=== PATIENT | male | born 2005 | race Caucasian/White ===

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

== ENCOUNTER 2023-01-28 15:57 | Outpatient (REF) | payer OTHER, SELFPAY ==
[2023-02-01 07:52] LABS: IgA 135 mg/dL (85-499); Interpretation (See Note); Tissue Transglutaminase IgA <1.2 U/mL (<4.0)
== END 2023-01-28 15:58 | disposition home or self-care (01) ==
LOC: NCHCN 15:57
PROVIDERS: Visit Provider Family Medicine
DX: R11.2 Nausea with vomiting, unspecified (principal)
CPT/HCPCS: 82784; 83516

== ENCOUNTER 2023-07-22 12:50 | Emergency (ER) | payer OTHER, SELFPAY ==
[2023-07-22 12:53] VITALS: BP 151/87; PULSE 75; RESP 14; TEMP 36.3; O2SAT 98
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
== END 2023-07-22 13:27 | disposition home or self-care (01) ==
LOC: ER 13:30
PROVIDERS: Emergency Provider Physician Assistant
DX: S61.215A Laceration without foreign body of left ring finger without damage to nail, initial encounter (principal); W31.2XXA Contact with powered woodworking and forming machines, initial encounter
CPT/HCPCS: 99283

== ENCOUNTER 2023-10-18 22:19 | Emergency (ER) | payer OTHER, SELFPAY ==
[2023-10-18] VITALS (7 sets, daily range): BP systolic 111–124; BP diastolic 63–75; PULSE 51–84; RESP 20; TEMP 36.2; O2SAT 95–100
--- NOTE | 2023-10-18 22:45 | DI.RAD_ITS ---
Exam(s) XR ABDOMEN FLAT UPRIGHT EXAM: 2D digital imaging was performed. CLINICAL HISTORY: vomiting, r/o obstruction. COMPARISON: No exams were available for comparison TECHNIQUE: Supine and upright views of the abdomen was performed. Four images were obtained. FINDINGS: LUNG BASES: Clear. BOWEL GAS PATTERN: Nondistended. FREE AIR: None. CALCIFICATIONS: No radiopaque calcifications. OSSEOUS STRUCTURES: Normal for age. OTHER FINDINGS: None. IMPRESSION: No evidence of an acute abdomen. DATA REPOSITORY: RADIATION DOSE DELIVERED:
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
[2023-10-18] MEDS: Lactated Ringers 1,000 ML 1000 ML IV (22:59)
[2023-10-18] MEDS: Droperidol 5 MG/2 ML VIAL 1.25 MG IVP (22:59)
[2023-10-18] MEDS: Ondansetron 4 MG/2 ML VIAL IVP (22:59)
[2023-10-18 23:01] LABS: Absolute Basophil Count 0.03 10^3/uL (0.0-0.2); Absolute Monocyte Count 0.72 10^3/uL (0.1-0.8); Basophils % 0.2 %; HCT 43.3 % (40.0-50.0); HGB 14.9 g/dL (13.5-17.5); Immature Grans % 0.6 %; Lymphocytes % 4.6 %; MCH 30.2 pg (27.0-33.0); MCHC 34.4 % (32.0-36.0); MCV 88 fL (80-95); MPV 10.4 fL (8.0-11.0); Monocytes % 4.2 %; Neutrophils % 90.4 %; Platelet Count 228 10^3/uL (130-400); RBC 4.94 10^6/uL (4.36-5.78); RDW 12.8 % (11.8-14.1); RDW-SD 41.2 fL; WBC 17.07 10^3/uL (4.4-10.8)
[2023-10-18 23:07] LABS: Absolute Lymphocyte Count 0.79 10^3/uL (1.2-3.4); Absolute Neutrophil Count 15.43 10^3/uL (1.2-6.7)
[2023-10-18 23:23] LABS: ALT 22 U/L (16-63); AST 21 U/L (15-37); Alkaline Phosphatase 62 U/L (46-116); Anion Gap 13.7 mmol/L (3-11); BUN 11 mg/dL (7-18); Bilirubin, Total 1.19 mg/dL (0.2-1.0); CO2 24.3 mmol/L (21.0-32.0); CREATININE 0.9 mg/dL (0.70-1.30); Chloride 102 mmol/L (98-107); Estimated GFR 125.39 (mL/min/1.73m2); Glucose 104 mg/dL (74-106); Lipase 16 U/L (16-77); Sodium 140 mmol/L (136-145); Total Protein 8.1 g/dL (6.4-8.2)
[2023-10-18 23:41] LABS: Calcium 9.6 mg/dL (8.5-10.1)
[2023-10-19 00:18] VITALS: BP 112/50; PULSE 65; RESP 18; TEMP 36.8; O2SAT 100
[2023-10-19] MEDS: Ondansetron O.D.T. 4 MG TABEF, 3 TABS/BTL PO (00:18)
[2023-10-19 00:22] VITALS: BP 112/50; PULSE 65; RESP 18; TEMP 36.8; O2SAT 100
--- NOTE | 2023-10-19 00:46 | DI.VRAD_ITS ---
PROCEDURE INFORMATION: Exam: XR Abdomen Exam date and time: 10/18/2023 23:09 Age: 18 years old Clinical indication: Vomiting; Additional info: Vomiting, R/O obstruction TECHNIQUE: Imaging protocol: Radiologic exam of the abdomen. Views: 2 Views. Upright and supine views. COMPARISON: CT CHEST/ABD/PEL W 11/20/2020 21:22 FINDINGS: Gastrointestinal tract: Nobstructive bowel gas pattern. No pathologic dilation of small bowel. General paucity of small bowel gas. Intraperitoneal space: No free air. Bones/joints: Unremarkable for age. IMPRESSION: Nobstructive bowel gas pattern. Dictated and Authenticated by: Shima Aceves MD. Ordering:ROLANDO Broussard MD
== END 2023-10-19 00:22 | disposition home or self-care (01) ==
PROVIDERS: Emergency Provider Student in an Organized Health Care Education/Training Program
DX: R10.32 Left lower quadrant pain (principal); R11.2 Nausea with vomiting, unspecified
CPT/HCPCS: 36415; 80053; 83690; 96361; 96374; 96375; 99284; 74019; 85025; 99283; J1790; J2405

== ENCOUNTER 2023-10-20 17:44 | Emergency (ER) | payer OTHER, SELFPAY ==
[2023-10-20 17:48] VITALS: BP 122/65; PULSE 87; RESP 15; TEMP 36.7; O2SAT 99
[2023-10-20 17:51] VITALS: BP 122/65; PULSE 87; RESP 15; TEMP 36.7; O2SAT 99
== END 2023-10-20 18:10 | disposition left against medical advice (07) ==
LOC: ER 18:02
DX: Z53.21 Procedure and treatment not carried out due to patient leaving prior to being seen by health care provider (principal)

== ENCOUNTER 2023-10-20 20:21 | Inpatient (IN) | payer OTHER, SELFPAY ==
[2023-10-20] VITALS (9 sets, daily range): BP systolic 102–146; BP diastolic 42–69; PULSE 60–92; RESP 14–15; TEMP 37; O2SAT 92–99; BMI 19.5
--- NOTE | 2023-10-20 20:45 | DI.CT_ITS ---
Exam(s) CT ABDOMEN PELVIS W EXAM: CT ABDOMEN PELVIS W CLINICAL HISTORY: RLQ pain. TECHNIQUE: Imaging Protocol: Axial computed tomography images with coronal and sagittal reformatted images were created and reviewed CONTRAST MATERIAL: Intravenous: Omnipaque 350 Contrast volume:100 ml Oral: / no COMPARISON: CT CT CHEST/ABD/PEL W from 11/20/2020 CR,XR XR ABDOMEN FLAT UPRIGHT from 10/18/2023 FINDINGS: ABDOMEN and PELVIS: Exam is limited by lack intra-abdominal fat and lack of oral contrast. Streak artifact related to me tallic densities external to the patient. Lung Bases: No acute findings. Liver: Normal density. No suspicious mass. Gallbladder and biliary tract: No radiodense calculus. No biliary dilation. Pancreas: Normal density. No abnormal calcifications or inflammatory process. No evidence of mass. Spleen: Normal. Kidneys: Normal size, contour and axis. No radiodense stones. No obstructive uropathy. No suspicious masses seen. Adrenal glands: No masses seen. Vasculature: Abdominal aorta non-dilated. Soft tissues: Unremarkable. Bladder: Nearly empty. No gross wall thickening. No calculi.No focal mass. Bowel: Intussusception left mid abdominal small bowel, likely transient. No obstruction. No bowel w all thickening. Dilated appendix with appendicoliths. Small amount of adjacent fluid versus small abs cess. Peritoneal cavity: Small amount of free fluid in lower pelvis. No free air. Bones: Unremarkable for age. Reproductive organs: Unremarkable. Lymph nodes: Mildly enlarged right lower quadrant lymph nodes consistent with reactive lymph nodes. IMPRESSION:: Findings consistent with acute appendicitis. Question of small adjacent abscess. Small amount free fluid in the low pelvis. RADIATION DOSE DELIVERED: Total DLP DATA REPOSITORY: All CT scans at this facility are submitted to the National Radiology Data Registry (NRDR) Dose Index Registry (DIR) with the [employer] (ACR). RADIATION OPTIMIZATION: All CT scans at this facility use at least one of these dose optimization te chniques: automated exposure control; mA and/or kV adjustment per patient size (includes targeted exa ms where dose is matched to clinical indication); or iterative reconstruction.
[2023-10-20] MEDS: Ketorolac 15 MG/ML VIAL IVP (21:10)
[2023-10-20] MEDS: Normal Saline 1,000 ML 1000 ML IV (21:10)
[2023-10-20 21:11] LABS: Abs Immature Grans 0.05 10^3/uL (0.0-0.06); Absolute Basophil Count 0.03 10^3/uL (0.0-0.2); Absolute Eosinophil Count 0.01 10^3/uL (0.0-0.7); Absolute Monocyte Count 1.12 10^3/uL (0.1-0.8); Absolute Neutrophil Count 11.05 10^3/uL (1.2-6.7); Basophils % 0.2 %; Eosinophils % 0.1 %; HGB 15.1 g/dL (13.5-17.5); Immature Grans % 0.4 %; Lymphocytes % 13.4 %; MCHC 34.3 % (32.0-36.0); MCV 87 fL (80-95); MPV 10.2 fL (8.0-11.0); Monocytes % 7.9 %; Platelet Count 248 10^3/uL (130-400); RBC 5.04 10^6/uL (4.36-5.78); RDW 12.8 % (11.8-14.1); RDW-SD 40.9 fL; WBC 14.17 10^3/uL (4.4-10.8)
[2023-10-20 21:13] LABS: Bilirubin Small (Negative); Blood Trace-intact (Negative); Clarity Clear (Clear); Glucose Negative (Negative); Ketones 15 mg/dL (Negative); Leukocyte Esterase Negative (Negative); Nitrite Negative (Negative); Specific Gravity >= 1.030 (1.005-1.025)
[2023-10-20] MEDS: Normal Saline - Diluent 50 ML VIAL IJ (21:19)
[2023-10-20] MEDS: Omnipaque 350 MG/ML 100 ML BTL IJ (21:20)
[2023-10-20 21:25] LABS: Bacteria Negative HPF (Negative); C & S Indicated? No; Crystals Rare Calcium Oxalate HPF (Negative); Epithelial Cells Negative HPF (Negative); Mucus Heavy (Negative); RBC 0-2 HPF (0-2); WBC 0-2 HPF (0-5)
[2023-10-20 21:26] LABS: ALT 18 U/L (16-63); AST 15 U/L (15-37); Albumin 4.3 g/dL (3.4-5.0); Alkaline Phosphatase 59 U/L (46-116); Anion Gap 10.1 mmol/L (3-11); BUN 11 mg/dL (7-18); Bilirubin, Total 0.98 mg/dL (0.2-1.0); CO2 27.9 mmol/L (21.0-32.0); CREATININE 0.9 mg/dL (0.70-1.30); Calcium 9.5 mg/dL (8.5-10.1); Chloride 102 mmol/L (98-107); Estimated GFR 125.39 (mL/min/1.73m2); Glucose 83 mg/dL (74-106); Magnesium 1.9 mg/dL (1.8-2.4); Potassium 3.8 mmol/L (3.5-5.1); Sodium 140 mmol/L (136-145); Total Protein 7.8 g/dL (6.4-8.2)
[2023-10-20] MEDS: HYDROmorphone 2 MG/ML SYR 0.5 MG IVP (21:44)
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
--- NOTE | 2023-10-20 22:59 | DI.VRAD_ITS ---
PROCEDURE INFORMATION: Exam: CT Abdomen And Pelvis With Contrast Exam date and time: 10/20/2023 9:21 PM Age: 18 years old Clinical indication: Other: Rlq pain TECHNIQUE: Imaging protocol: Computed tomography of the abdomen and pelvis with contrast. Contrast material: OMNIPAQUE 350; Contrast volume: 100 ml; Contrast route: INTRAVENOUS (IV); COMPARISON: CT CHEST/ABD/PEL W 11/20/2020 9:22 PM FINDINGS: Lungs: Visualized lung bases are clear. Heart: Heart size normal. Esophagus: The visualized distal esophagus is largely contracted without gross abnormality. Liver: Normal contour. No mass lesions. No intrahepatic biliary ductal dilatation. Gallbladder and biliary ducts: Normal. No calcified stones. No ductal dilation. Pancreas: Normal. No inflammatory changes or ductal dilation. Spleen: Normal. No splenomegaly. Adrenal glands: Normal. No adrenal mass. Kidneys and ureters: No acute abnormalities. No hydronephrosis or hydroureter. No urinary tract stones are identified. Stomach and bowel: The stomach is unremarkable. Small bowel is nondilated. Distal ileum shows fluid distension in the right lower quadrant likely representing mild reactive changes/regional ileus from nearby appendicitis. Short segment small bowel intussusception in the left mid abdominal region measuring 2 cm in length with no lead point mass or changes of obstruction proximal to this, favor incidental/transient finding. Appendix: The appendix is dilated and inflamed reaching 13 mm diameter consistent with acute appendicitis. No evidence of perforation. 2.4 x 1.5 x 1.4 cm bilocular fluid collection adjacent to the appendix suspicious for a small periappendiceal abscess. Mild reactive wall thickening in the cecum near the appendicitis. Intraperitoneal space: Small volume peritoneal free fluid in the pelvis, right lower quadrant, and Marcus's pouch. No free air. Vasculature: No acute process. No abdominal aortic aneurysm. Lymph nodes: No adenopathy. Urinary bladder: The urinary bladder is largely contracted without gross abnormality. Reproductive: Patchy under enhancement in the rightward half of the prostate is probably contrast phase related although prostatitis could produce this appearance. No well-developed peripheral rim enhancement to suggest abscess. Bones/joints: No acute osseous abnormalities. Chronic appearing mild superior endplate compression deformity of L2 is new since 11/20/2020. Soft tissues: No acute soft tissue abnormalities. IMPRESSION: 1. Acute appendicitis. No evidence of perforation. 2. Suspect small periappendiceal abscess. 3. Small volume peritoneal free fluid. No free air. 4. Mild adjacent reactive changes in the distal small bowel and cecum. 5. There is a short segment small bowel intussusception in the left mid abdominal region with no lead point mass or associated findings of bowel obstruction, favor incidental transient finding. 6. Patchy under enhancement in the rightward half of the prostate may be contrast phase related although prostatitis could produce this appearance. 7. Chronic appearing mild superior endplate compression deformity of L2, although new since 2020. 8. These findings initiated a critical results reporting process. An addendum will be issued at the time of clinician notification. Dictated and Authenticated by: Clay Cardenas MD. Ordering:MASOUD eParce MD
--- NOTE | 2023-10-20 23:05 | DI.VRAD_ITS ---
Addendum created by Clay Cardenas MD on 10/20/2023 11:05:11 PM EDT: Addendum: THIS REPORT CONTAINS FINDINGS THAT MAY BE CRITICAL TO PATIENT CARE. The findings were verbally communicated via telephone conference with JAMES YOO at 11:05 PM EDT on 10/20/2023. The findings were acknowledged and understood. Initial report created on 10/20/2023 10:59:27 PM EDT: PROCEDURE INFORMATION: Exam: CT Abdomen And Pelvis With Contrast Exam date and time: 10/20/2023 9:21 PM Age: 18 years old Clinical indication: Other: Rlq pain TECHNIQUE: Imaging protocol: Computed tomography of the abdomen and pelvis with contrast. Contrast material: OMNIPAQUE 350; Contrast volume: 100 ml; Contrast route: INTRAVENOUS (IV); COMPARISON: CT CHEST/ABD/PEL W 11/20/2020 9:22 PM FINDINGS: Lungs: Visualized lung bases are clear. Heart: Heart size normal. Esophagus: The visualized distal esophagus is largely contracted without gross abnormality. Liver: Normal contour. No mass lesions. No intrahepatic biliary ductal dilatation. Gallbladder and biliary ducts: Normal. No calcified stones. No ductal dilation. Pancreas: Normal. No inflammatory changes or ductal dilation. Spleen: Normal. No splenomegaly. Adrenal glands: Normal. No adrenal mass. Kidneys and ureters: No acute abnormalities. No hydronephrosis or hydroureter. No urinary tract stones are identified. Stomach and bowel: The stomach is unremarkable. Small bowel is nondilated. Distal ileum shows fluid distension in the right lower quadrant likely representing mild reactive changes/regional ileus from nearby appendicitis. Short segment small bowel intussusception in the left mid abdominal region measuring 2 cm in length with no lead point mass or changes of obstruction proximal to this, favor incidental/transient finding. Appendix: The appendix is dilated and inflamed reaching 13 mm diameter consistent with acute appendicitis. No evidence of perforation. 2.4 x 1.5 x 1.4 cm bilocular fluid collection adjacent to the appendix suspicious for a small periappendiceal abscess. Mild reactive wall thickening in the cecum near the appendicitis. Intraperitoneal space: Small volume peritoneal free fluid in the pelvis, right lower quadrant, and Marcus's pouch. No free air. Vasculature: No acute process. No abdominal aortic aneurysm. Lymph nodes: No adenopathy. Urinary bladder: The urinary bladder is largely contracted without gross abnormality. Reproductive: Patchy under enhancement in the rightward half of the prostate is probably contrast phase related although prostatitis could produce this appearance. No well-developed peripheral rim enhancement to suggest abscess. Bones/joints: No acute osseous abnormalities. Chronic appearing mild superior endplate compression deformity of L2 is new since 11/20/2020. Soft tissues: No acute soft tissue abnormalities. IMPRESSION: 1. Acute appendicitis. No evidence of perforation. 2. Suspect small periappendiceal abscess. 3. Small volume peritoneal free fluid. No free air. 4. Mild adjacent reactive changes in the distal small bowel and cecum. 5. There is a short segment small bowel intussusception in the left mid abdominal region with no lead point mass or associated findings of bowel obstruction, favor incidental transient finding. 6. Patchy under enhancement in the rightward half of the prostate may be contrast phase related although prostatitis could produce this appearance. 7. Chronic appearing mild superior endplate compression deformity of L2, although new since 2020. 8. These findings initiated a critical results reporting process. An addendum will be issued at the time of clinician notification. Dictated and Authenticated by: Clay Cardenas MD. Ordering:MASOUD Pearce MD
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
[2023-10-21] VITALS (33 sets, daily range): BP systolic 118–151; BP diastolic 57–103; PULSE 51–87; RESP 10–23; TEMP 36.7–37.6; O2SAT 70–100
[2023-10-21] MEDS: Pantoprazole 40 MG VIAL IVP (00:01)
[2023-10-21] MEDS: MORPHine 10 MG/ML VIAL 2 MG IVP (00:09)
[2023-10-21] MEDS: Lactated Ringers 1,000 ML 30 ML IV (00:39)
[2023-10-21] MEDS: ERTAPENEM 1 GM in Normal Saline 50 ML IVPB (00:55)
[2023-10-21] MEDS: Bupivacaine 0.25% Pres-Free W/EPI 30 ML VIAL (01:35)
--- NOTE | 2023-10-21 02:24 | W.PM.OP ---
Date of service: 10/21/23 Time of Service: 02:33 Operative Note Operative Note DATE OF PROCEDURE: 10/21/23 PRE-OP DIAGNOSIS: Acute appendicitis with abscess POST-OP DIAGNOSIS: same PROCEDURE: Laparoscopic appendectomy with peritoneal lavage and drain placement SURGEON: Beverly Nayak MERCHANDISING EXECUTION ASSOCIATE: Sydnie Denise ANESTHESIA TYPE: Local By Surgeon and General LMA/ETT Refer to Anesthesia Record ESTIMATED BLOOD LOSS: 15 COMPLICATIONS: None Patient was transported to: PACU Patient's condition: stable Indications: This patient is a 18-year-old male who presented to the emergency department signs and symptoms of acute appendicitis with abscess. After complete history and physical examination was performed a laparoscopic appendectomy with possible open conversion was recommended. The risk and benefits of the procedure were explained to the patient. Informed consent was obtained and placed on chart. Procedure Description: The patient was brought to the operating room where he was placed on the operating table in supine position. After adequate general endotracheal anesthesia was administered by the department of anesthesia, the abdomen was prepped and draped in standard sterile fashion, preop antibiotics were administered, Yeh catheter was placed, and a timeout was performed to confirm the site of surgery. #15. Blade scalpel was then used to make a infraumbilical incision. Mini laparotomy technique was used to gain entry into the peritoneal cavity. A 12 mm trocar was placed and the abdomen was insufflated to a pressure of 12 to 15 mmHg. A 10 mm 0 degree laparoscope was inserted into the peritoneal cavity. Upon primary survey of the abdomen there is no apparent injury from trocar insertion. In the right lower quadrant of the abdomen inflamed omentum covered the cecum of the colon. Under direct visualization a 12 mm trocar was placed in the left upper quadrant and a 5 mm trocar was placed in the left lower quadrant. The patient was then repositioned in Trendelenburg with the right side up. Blunt graspers were introduced. The omentum was carefully peeled off of the cecum and the appendix. In doing so an abscess pocket was entered and there was purulent drainage. The acutely inflamed appendix was identified. Peritoneal attachments were taken off of the appendix and the cecum. [place] dissector was then used to create a window in the mesoappendix. 5 mm LigaSure was then used to divide the mesoappendix. 2 loads of the purple Endo MYKE staplers were used to divide the appendix with a portion of the cecum as the base of the appendix was inflamed. The appendix was put in an Endo Catch bag and retrieved from the peritoneal cavity. Peritoneal fluid was suctioned and sent for cultures. The peritoneal cavity was copiously irrigated with 2 L of normal saline solution. Excess irrigation was suctioned. #10 Castillo-Rico drain was placed in the right lower quadrant of the abdomen and brought out through the left port site. Under direct visualization all the trocars were removed. The abdomen was then desufflated. The drain was secured with a 2-0 nylon stitch the skin subtenons tissue of the trocar sites were anesthetized with local anesthetic. The fascia of the trocar sites was reapproximated using 0 Vicryl with a [id number] stitch. Skin edges were reapproximated using 4-0 Monocryl oral. The abdomen was then cleaned and dried. Sterile dressings were applied. Patient tolerated the procedure well. The needle, sponge and instrument counts were all correct at the end of the case.
[2023-10-21] MEDS: fentaNYL 100 MCG/2 ML VIAL IVP ×2 (02:55→03:08)
--- NOTE | 2023-10-21 03:02 | W.ANESPOSTOP ---
Postoperative Evaluation Date, Time and Location Date Performed: 10/21/23 Time Performed: 03:02 Patient Location: PACU Vital Signs Most Recent Imported Vital Signs: Most Recent Vital Signs Temp Pulse Resp BP Pulse Ox 36.7 C 78 18 137/103 H 100 10/21/23 02:45 10/21/23 03:00 10/21/23 03:01 10/21/23 03:00 10/21/23 03:01 Pain Score Most Recent Pain Score: Most Recent Pain Score Pain Level 0 10/20/23 23:15 Assessment Mental Status: Awake (Alert & Oriented to Patient Baseline) Airway and Respiratory Function: Patent airway with normal (patient baseline) respiratory exam Cardiovascular Function: Hemodynamically Stable Hydration Status: Adequately Hydrated Nausea & Vomiting: No Nausea or Vomiting Pain: Pt. Denies Any Pain Peripheral Nerve Block: Patient did not receive a nerve block
[2023-10-21] MEDS: Droperidol 5 MG/2 ML VIAL 0.625 MG IVP (03:13)
[2023-10-21] MEDS: MORPHine 2 MG/ML SYR IVP ×5 (04:05→22:41)
[2023-10-21] MEDS: Normal Saline 1,000 ML 100 ML IV ×3 (04:45→15:45)
[2023-10-21] MEDS: Acetaminophen 500 MG TAB 1000 MG PO ×3 (05:33→18:26)
[2023-10-21 07:24] LABS: Abs Immature Grans 0.06 10^3/uL (0.0-0.06); Absolute Monocyte Count 1.29 10^3/uL (0.1-0.8); Basophils % 0.2 %; HCT 39.9 % (40.0-50.0); HGB 13.4 g/dL (13.5-17.5); Immature Grans % 0.5 %; Lymphocytes % 3.8 %; MCH 29.8 pg (27.0-33.0); MCHC 33.6 % (32.0-36.0); MCV 89 fL (80-95); MPV 10.4 fL (8.0-11.0); Monocytes % 9.8 %; Neutrophils % 85.7 %; Platelet Count 209 10^3/uL (130-400); RBC 4.49 10^6/uL (4.36-5.78); RDW 12.8 % (11.8-14.1); WBC 13.16 10^3/uL (4.4-10.8)
[2023-10-21 07:34] LABS: Absolute Basophil Count 0.03 10^3/uL (0.0-0.2); Absolute Neutrophil Count 11.28 10^3/uL (1.2-6.7)
[2023-10-21 07:38] LABS: Anion Gap 13.3 mmol/L (3-11); BUN 9 mg/dL (7-18); CO2 23.7 mmol/L (21.0-32.0); CREATININE 0.8 mg/dL (0.70-1.30); Calcium 8.8 mg/dL (8.5-10.1); Chloride 103 mmol/L (98-107); Estimated GFR 129.93 (mL/min/1.73m2); Glucose 111 mg/dL (74-106); Potassium 3.9 mmol/L (3.5-5.1); Sodium 140 mmol/L (136-145)
[2023-10-21] MEDS: Enoxaparin 40 MG/0.4 ML SYR SC (08:23)
[2023-10-21] MEDS: Ibuprofen 600 MG TAB PO ×2 (08:23→18:26)
[2023-10-21] MEDS: Normal Saline Flush 10 ML SYR IVP ×3 (09:31→22:41)
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
[2023-10-21] MEDS: LORazepam 0.5 MG TAB PO (13:16)
--- NOTE | 2023-10-21 19:58 | W.PM.PROGNOT ---
Date of Service Date of service: 10/21/23 Time of Service: 16:00 Assessment and Plan Assessment and plan (1) Attention deficit hyperactivity disorder, combined type: Status: Chronic (2) Appendicitis with abscess: Status: Acute (3) S/P laparoscopic appendectomy: Assessment and plan: CLAIRE drain Invanz pain control saw walk/pulm toilet trend CBC s/p lap appy w/ perf appendix w/ abscess Subjective Subjective Interval history since last seen: Pt is doing ok. no headaches. No CP or SOB. no productive cough. no dysuria. no leg pain or swelling. Exam Narrative Exam Narrative: PHYSICAL EXAM HEAD, EYES, EARS, NECK, THROAT: Head is normocephalic, pupils equal, round, reactive to light and accommodation, ocular movement intact, sclera clear and no jaundice. ?Dentition intact. LUNGS: normal respiration/normal chest excursion. ?Clear to auscultation bilaterally. ?No wheeze. ?HEART: Regular rate and rhythm. no murmurs EXTREMITY: No edema or cyanosis.? no leg pain, redness, swelling.? ABDOMEN: Incisions are clean dry and intact. Drainage from the CLAIRE is combination of blood and purulence Objective Last Vital Signs Temp 37.1 C 10/21/23 15:30 Pulse 65 10/21/23 15:30 Resp 18 10/21/23 15:30 BP 120/78 10/21/23 15:30 Pulse Ox 98 10/21/23 15:30 Laboratory Results - last 24 hr 10/20/23 10/21/23 21:04 06:40 WBC 14.17 H 13.16 H RBC 5.04 4.49 Hgb 15.1 13.4 L Hct 44.0 39.9 L MCV 87 89 MCH 30.0 29.8 MCHC 34.3 33.6 RDW 12.8 12.8 Plt Count 248 209 MPV 10.2 10.4 Immature Gran % 0.4 0.5 Neutrophils % 78.0 85.7 Lymphocytes % 13.4 3.8 Monocytes % 7.9 9.8 Eosinophils % 0.1 0.0 Basophils % 0.2 0.2 Nucleated RBC % 0.0 0.0 Absolute Neutrophils 11.05 H 11.28 H Absolute Lymphocytes 1.90 0.50 L Absolute Monocytes 1.12 H 1.29 H Absolute Eosinophils 0.01 0.00 Absolute Basophils 0.03 0.03 Sodium 140 140 Potassium 3.8 3.9 Chloride 102 103 Carbon Dioxide 27.9 23.7 Anion Gap 10.1 13.3 H BUN 11 9 Creatinine 0.9 0.8 Est GFR (CKD-EPI 2020) 125.39 129.93 Glucose 83 111 H Calcium 9.5 8.8 Magnesium 1.9 Total Bilirubin 0.98 AST 15 ALT 18 Alkaline Phosphatase 59 Total Protein 7.8 Albumin 4.3 Urine Color Yellow Urine Clarity Clear Urine pH 6.0 Ur Specific [place] >= 1.030 H Urine Protein Trace Urine Ketones 15 H Urine Blood Trace-intact H Urine Nitrite Negative Urine Bilirubin Small H Urine Urobilinogen 2.0 H Ur Leukocyte Esterase Negative Urine RBC 0-2 Urine WBC 0-2 Ur Epithelial Cells Negative Urine Crystals Rare Calcium Oxalate Urine Bacteria Negative Urine Mucus Heavy Ur Culture Indicated? No Urine Glucose Negative Time Spent with Patient Time Spent with Patient: <25 minutes Time was spent: preparing to see the patient(eg.review tests), obtaining and/or reviewing separately otained hiistory, ordering medications,tests, procedures, referring, communicating with other health long term care social worker, indepentently interpreting results, counseling the patient, care coordination and other
[2023-10-22] MEDS: Acetaminophen 500 MG TAB 1000 MG PO ×4 (00:41→18:45)
[2023-10-22] MEDS: Ibuprofen 600 MG TAB PO ×4 (00:41→18:45)
[2023-10-22] MEDS: Pantoprazole 40 MG VIAL IVP (00:42)
[2023-10-22] MEDS: ERTAPENEM 1 GM in Normal Saline 50 ML IVPB (00:42)
[2023-10-22] MEDS: Normal Saline 1,000 ML 100 ML IV ×3 (01:50→21:18)
[2023-10-22 06:39] LABS: Abs Immature Grans 0.03 10^3/uL (0.0-0.06); Absolute Basophil Count 0.04 10^3/uL (0.0-0.2); Absolute Eosinophil Count 0.09 10^3/uL (0.0-0.7); Absolute Monocyte Count 0.75 10^3/uL (0.1-0.8); Absolute Neutrophil Count 6.02 10^3/uL (1.2-6.7); Basophils % 0.4 %; HCT 38.1 % (40.0-50.0); HGB 12.8 g/dL (13.5-17.5); Immature Grans % 0.3 %; Lymphocytes % 23.3 %; MCHC 33.6 % (32.0-36.0); MCV 89 fL (80-95); MPV 10.6 fL (8.0-11.0); Monocytes % 8.3 %; Neutrophils % 66.7 %; Platelet Count 191 10^3/uL (130-400); RBC 4.26 10^6/uL (4.36-5.78); RDW 12.9 % (11.8-14.1); RDW-SD 42.1 fL; WBC 9.03 10^3/uL (4.4-10.8)
[2023-10-22 07:29] VITALS: BP 117/60; PULSE 54; RESP 17; TEMP 37.2; O2SAT 98
[2023-10-22] MEDS: Enoxaparin 40 MG/0.4 ML SYR SC (09:37)
[2023-10-22] MEDS: Milk of Magnesia 30 ML CUP PO (09:38)
[2023-10-22] MEDS: Normal Saline Flush 10 ML SYR IVP ×2 (09:39→19:50)
--- NOTE | 2023-10-22 11:51 | W.PM.PROGNOT ---
Date of Service Date of service: 10/22/23 Time of Service: 11:52 Assessment and Plan Assessment and plan (1) Attention deficit hyperactivity disorder, combined type: Status: Chronic (2) Appendicitis with abscess: Status: Acute (3) S/P laparoscopic appendectomy: Assessment and plan: Laparoscopic Appendectomy with perforation of the appendix with abscess. CLAIRE drain in place. High risk for abscess. No fevers or white count today. Invanz pain control walk/pulm toilet Regular diet, encouraged increased protein intake. Encouraged activity OOB, ambulation. He has milk of magnesia ordered, to hopefully promote a BM Subjective Subjective Interval history since last seen: Patient reports he is feeling okay. He has not had a BM yet. He has started eating some food. Exam Const General: cooperative, healthy appearing and comfortable Orientation: alert and oriented x3 Resp Effort & Inspection: normal respiratory effort, no audible wheezes and no cough GI Other: Soft, tender to palpation. CLAIRE drain in place. Dressing was changed. Thick, pink drainage in drain. Incision sites are well approximated with skin a fix in place. Objective Last Vital Signs Temp 37.2 C 10/22/23 07:29 Pulse 54 L 10/22/23 07:29 Resp 17 10/22/23 07:29 BP 117/60 10/22/23 07:29 Pulse Ox 98 10/22/23 07:29 Laboratory Results - last 24 hr 10/22/23 05:51 WBC 9.03 RBC 4.26 L Hgb 12.8 L Hct 38.1 L MCV 89 MCH 30.0 MCHC 33.6 RDW 12.9 Plt Count 191 MPV 10.6 Immature Gran % 0.3 Neutrophils % 66.7 Lymphocytes % 23.3 Monocytes % 8.3 Eosinophils % 1.0 Basophils % 0.4 Nucleated RBC % 0.0 Absolute Neutrophils 6.02 Absolute Lymphocytes 2.10 Absolute Monocytes 0.75 Absolute Eosinophils 0.09 Absolute Basophils 0.04 Time Spent with Patient Time Spent with Patient: <25 minutes Time was spent: preparing to see the patient(eg.review tests), obtaining and/or reviewing separately otained hiistory and counseling the patient
--- NOTE | 2023-10-22 12:09 | PDOC.CMPRO ---
Date of service: 10/22/23 Time of Service: 12:09 Care Management Progress Note Progress Note Text Progress Note Text: Epi was sitting up in bed when CM met with him. His Mom and sister were at the bedside. Epi was open to conversation. He looked healthier than yesterday and stated his pain is much improved. He has been up ambulating today without difficulty, and is eager to get home. Discussed with Epi and his Mom that per CM phone call with Clarice yesterday, insurance benefits ended yesterday, with Epi's termination. This was very upsetting to both. Mom and Epi have started to fill out the Patient Assistance Application. Mom and Epi were made aware that CM made referral to [facility] yesterday (Epi gave permission for referral yesterday) and they are going to f/u with a phone call to [facility] this afternoon. Discharge Potential Discharge Needs: PCP F/U Appt and Surgical F/U Appt (Will need referral to new PCP, as Epi is not established and will need surgical f/u) Anticipated Barriers to Discharge: Medical Status (awaiting culture results) Patient/Family Education Needs: Review discharge instructions, discuss Ask Me Three Transportation: Private vehicle Plan: Anticipate that Epi will be sent home with no new services. He will need to f/u with the surgeon and establish with a new PCP in the area. Referral will be sent to [facility]. CM will continue to follow and support discharge plan. SDOH(Care Management) Screening Will the Patient Participate in the Screening?: Yes Do you worry about having a steady place to live?: no In the past 12 months, have you had to go without electric, gas, oil or water in your home?: no Have you or anyone in your house had to go without enough food to eat?: no Has lack of transportation kept you from medical appointments or from doing things needed for daily living?: no Has anyone in your support network made you feel unsafe for any reason?: no Social Determinants of Health Comments(SDOH Details): Epi was let go at his job today, and is very anxious about losing his insurance.
--- NOTE | 2023-10-22 15:08 | PHA.REVIEW2 ---
Pharmacy Admission Review Admission Clinical Review Admission Pharmacy Review: Appendicitis with abscess (Acute) No Known Allergies Allergy (Verified 10/18/23 22:30) Resuscitation Status Full Code Height 6 ft 4 in Weight 77 kg Pharmacy Admission Review Renal Dosing Renal Dosing: BUN 9 mg/dL (7-18) 10/21/23 06:40 Creatinine 0.8 mg/dL (0.70-1.30) 10/21/23 06:40 Medications needing adjustments: Reviewed (crcl = 160, adjustments not needed) Anticoagulation Anticoagulation: Hgb 12.8 g/dL (13.5-17.5) L 10/22/23 05:51 Hct 38.1 % (40.0-50.0) L 10/22/23 05:51 Plt Count 191 10^3/uL (130-400) 10/22/23 05:51 Creatinine 0.8 mg/dL (0.70-1.30) 10/21/23 06:40 DVT Prophylaxis: Reviewed Medications: Enoxaparin (40 mg sc daily) Therapeutic Anticoagulation: N/A Opiate Usage Evaluate Pain Scale/Pains Meds: Reviewed (morphine 2 mg IV q3h prn, last dose yesterday @2240) Scheduled Bowel Reg ordered if on Opiates?: Yes (milk of mag daily) Relevant Labs Relevant Labs: Sodium 140 mmol/L (136-145) 10/21/23 06:40 Potassium 3.9 mmol/L (3.5-5.1) 10/21/23 06:40 Chloride 103 mmol/L (98-107) 10/21/23 06:40 Magnesium 1.9 mg/dL (1.8-2.4) 10/20/23 21:04 Electrolytes, C-Reactive P, ESR: Reviewed (WBC down 9.03 from 13.16 yesterday) DM Control DM Control: N/A (no diabetes diagnosis) Cardiac Review BP, HR, EF%: Reviewed (HR 50s-60s) QTc Review QTc: Not Reviewed (no EKG to review) IV to PO Switch IV Medications: Reviewed (abx, zofran, protonix currently IV s/p appendectomy - switch to PO when appropriate) Home Meds Home Med List reviewed: N/A (no home meds listed, no recent fill history) Current Meds Current Medication Order Review: Reviewed Pharmacy Antibiotic Review Pharmacy Antibiotic Activity: Reviewed, no change Comments: ertapenem 1 g q24h (indication: appendicitis w/ abcess) peritoneal culture: gram- mack, gram+ yanira
[2023-10-22 15:24] VITALS: BP 123/63; PULSE 86; RESP 18; TEMP 37.5; O2SAT 98
[2023-10-22] MEDS: MORPHine 2 MG/ML SYR IVP (19:49)
[2023-10-22 20:08] VITALS: BP 134/80; PULSE 62; RESP 18; TEMP 36.7; O2SAT 98
[2023-10-23 00:02] VITALS: BP 125/72; PULSE 56; RESP 18; TEMP 37; O2SAT 99
[2023-10-23] MEDS: Ibuprofen 600 MG TAB PO ×3 (00:03→11:10)
[2023-10-23] MEDS: Acetaminophen 500 MG TAB 1000 MG PO ×3 (00:03→11:10)
[2023-10-23] MEDS: ERTAPENEM 1 GM in Normal Saline 50 ML IVPB (00:03)
[2023-10-23] MEDS: Normal Saline Flush 10 ML SYR IVP ×2 (00:05→09:09)
[2023-10-23] MEDS: Pantoprazole 40 MG VIAL IVP (00:05)
[2023-10-23 06:49] LABS: Abs Immature Grans 0.01 10^3/uL (0.0-0.06); Absolute Basophil Count 0.05 10^3/uL (0.0-0.2); Absolute Eosinophil Count 0.24 10^3/uL (0.0-0.7); Absolute Lymphocyte Count 1.62 10^3/uL (1.2-3.4); Absolute Monocyte Count 0.59 10^3/uL (0.1-0.8); Absolute Neutrophil Count 4.45 10^3/uL (1.2-6.7); Basophils % 0.7 %; Eosinophils % 3.4 %; HCT 36.7 % (40.0-50.0); HGB 12.7 g/dL (13.5-17.5); Immature Grans % 0.1 %; Lymphocytes % 23.3 %; MCH 30.5 pg (27.0-33.0); MCHC 34.6 % (32.0-36.0); MCV 88 fL (80-95); MPV 10.3 fL (8.0-11.0); Monocytes % 8.5 %; Platelet Count 219 10^3/uL (130-400); RBC 4.17 10^6/uL (4.36-5.78); RDW 12.7 % (11.8-14.1); RDW-SD 41.4 fL; WBC 6.96 10^3/uL (4.4-10.8)
[2023-10-23 07:15] VITALS: BP 124/83; PULSE 49; RESP 18; TEMP 37.2; O2SAT 100
--- NOTE | 2023-10-23 07:31 | W.PM.PROGNOT ---
Date of Service Date of service: 10/23/23 Time of Service: 07:33 Assessment and Plan Assessment and plan (1) Appendicitis with abscess: Status: Acute Assessment and plan: I will stop the ART pending today, and switch him over to Augmentin. Will see how he does with that. Assuming his hemodynamics are okay and he tolerates medications, I would anticipate discharge later this afternoon. Subjective Subjective Interval history since last seen: Epi did pretty well overnight. He still has a little bit of a lump at the umbilicus, but has not changed in the interim since our visit. He has been afebrile overnight, and his white blood cell count continues to trend downwards. He is tolerating a diet. Exam GI Other: Abdomen is soft and nondistended. He is a little bit tender at the incision sites. The umbilicus is a little bit full, and feels like a hematoma. I do not feel any dehiscence or herniation. Objective Last Vital Signs Temp 98.6 F 10/23/23 00:02 Pulse 56 L 10/23/23 00:02 Resp 18 10/23/23 00:02 BP 125/72 10/23/23 00:02 Pulse Ox 99 10/23/23 00:02 Laboratory Results - last 24 hr 10/23/23 10/23/23 06:25 Unknown WBC 6.96 Cancelled RBC 4.17 L Cancelled Hgb 12.7 L Cancelled Hct 36.7 L Cancelled MCV 88 Cancelled MCH 30.5 Cancelled MCHC 34.6 Cancelled RDW 12.7 Cancelled Plt Count 219 Cancelled MPV 10.3 Cancelled Immature Gran % 0.1 Neutrophils % 64.0 Lymphocytes % 23.3 Monocytes % 8.5 Eosinophils % 3.4 Basophils % 0.7 Nucleated RBC % 0.0 Absolute Neutrophils 4.45 Absolute Lymphocytes 1.62 Absolute Monocytes 0.59 Absolute Eosinophils 0.24 Absolute Basophils 0.05 Time Spent with Patient Time Spent with Patient: <25 minutes Time was spent: preparing to see the patient(eg.review tests), indepentently interpreting results and counseling the patient
[2023-10-23] MEDS: Enoxaparin 40 MG/0.4 ML SYR SC (09:08)
[2023-10-23] MEDS: Amoxicillin 875/Clav. 125 TAB PO (09:09)
[2023-10-23] MEDS: Ketorolac 15 MG/ML VIAL IVP (09:09)
--- NOTE | 2023-10-23 09:38 | PDOC.CMPRO ---
Date of service: 10/23/23 Time of Service: 09:38 Care Management Progress Note Progress Note Text Progress Note Text: Epi was lying in bed, eyes closed, when CM met with him this morning. The room was dark. He was c/o a lot of pain this morning. Says it's worse after eating. I encouraged him to discuss this with his nurse and surgeon. Discharge Potential Discharge Needs: PCP F/U Appt and Surgical F/U Appt (will need referral to establish with PCP. T-doc on day of admission Prashant Jolly) Anticipated Barriers to Discharge: None Identified Patient/Family Education Needs: Review discharge instructions, discuss Ask Me Three Transportation: Private vehicle Plan: Anticipate that Epi will be discharged home today with no new services. He will transport via private vehicle with his mom or sister. He will need to establish with new PCP and to follow up with surgery. SDOH(Care Management) Screening Will the Patient Participate in the Screening?: Yes Do you worry about having a steady place to live?: no In the past 12 months, have you had to go without electric, gas, oil or water in your home?: no Have you or anyone in your house had to go without enough food to eat?: no Has lack of transportation kept you from medical appointments or from doing things needed for daily living?: no Has anyone in your support network made you feel unsafe for any reason?: no Social Determinants of Health Comments(SDOH Details): Epi was let go at his job today, and is very anxious about losing his insurance.
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
--- NOTE | 2023-10-23 14:31 | CMDISCH_ITS ---
Date of service: 10/23/23 Time of Service: 11:00 LACE Index Scoring Tool Questions: Length of Stay (in days): 3 Was the patient admitted via the E.D.?: Yes E.D. Visits: 3 Answers: Total Score: 9 Risk of Readmission: Low Risk Care Management Discharge Plan Reason for Hospitalization: appendicitis with abscess Discharge Plan: Epi will be discharged home with new orders for antibiotics. He will transport in private vehicle with family. He will f/u with surgery on 11/04 and new PCP office on 11/05. Patient/Family Education Needs: Reviewed discharge instructions, activity limitations, f/u plan and discussed ask me three. SDOH Health Related Social Needs: No Data to Display Care Management Referrals: [facility] (Epi was referred to [facility] for assistance with applying for Medicaid) Referral for Financial Health Care Support: Financial Assistance ([facility] Patient Assistance Packet given to patient)
== END 2023-10-23 14:53 | disposition home or self-care (01) | DRG 399 ==
LOC: ER 23:43 → SUR 10-21 00:52 → MS 10-21 03:43
PROVIDERS: Admitting Provider Surgery; Emergency Provider Nurse Practitioner Family; Visit Provider Surgery
PROC: 0DTJ4ZZ Resection of Appendix, Percutaneous Endoscopic Approach (ICD-10-PCS; CPT 44970; principal; 2023-10-20 23:55)
DX: K35.33 Acute appendicitis with perforation, localized peritonitis, and gangrene, with abscess (principal); F90.2 Attention-deficit hyperactivity disorder, combined type; R48.0 Dyslexia and alexia; L40.9 Psoriasis, unspecified; F17.290 Nicotine dependence, other tobacco product, uncomplicated
CPT/HCPCS: 44970; 00123; 36415; 80048; 80053; 87077; 96361; 96374; 96375; 99285; J1650; 74177; 81003; 81015; 83735; 85025; 87070; 87075; 87186; 87205; 88304; J0131; J1100; J1170; J1335; J1790; J1885; J2001; J2270; J2470; J2704; J3010; J3490

== ENCOUNTER 2023-11-06 14:32 | Outpatient (CLI) | payer MEDICAID, SELFPAY ==
--- NOTE | 2023-11-06 13:30 | DI.RAD_ITS ---
Exam(s) XR CHEST 2V PA LATERAL EXAM: XR CHEST 2V PA LATERAL CLINICAL HISTORY: SOB, adventitious lung sounds,wheezing,r06.2. TECHNIQUE: 2D digital imaging was performed. COMPARISON: CR XR CHEST 2V PA LATERAL from 05/10/2022 FINDINGS: 2 views: There is now a fusion plate across the previously present midshaft fracture of the left clavicle. Ap pears satisfactory. Heart size is normal. The mediastinum is not widened. Lungs are clear. No infiltrates nor pleural effusions. Inflation is evident. IMPRESSION: Hyperinflation but no acute infiltrates. No pneumothorax. No pleural effusions. DATA REPOSITORY: RADIATION DOSE DELIVERED:
== END 2023-11-06 14:52 ==
PROVIDERS: Visit Provider Nurse Practitioner Family
DX: R06.2 Wheezing (principal)
CPT/HCPCS: 71046

== ENCOUNTER 2024-07-16 06:10 | Emergency (ER) | payer MEDICAID, SELFPAY ==
[2024-07-16 06:16] VITALS: BP 128/73; PULSE 79; RESP 18; TEMP 36.7; O2SAT 99
--- NOTE | 2024-07-16 06:30 | ED.GENADUL_ITS ---
Discharge Plan Discharge Details Chief Complaint: Nausea/Vomit/Diar Primary Care Provider: Unknown,Unknown ED Provider: Kiel Finley [place] Meds and New Rx's Prescriptions: No Action albuterol sulfate 90 mcg/actuation HFA aerosol inhaler 2 puff inhalation Q6H PRN (Reason: shortness of breath or wheezing) Qty: 8.5 1RF Rx Instructions: use with spacer (DME) Derek Aerosol [place] Enhancer Spacer See Rx Instructions .Route Qty: 1 0RF Rx Instructions: As directed HPI General Mode of arrival: ambulatory . Date/Time Provider Initiated Documentation: 07/16/24 06:29 . Limitations to Documentation: no limitations . Information obtained by: patient and RN notes reviewed . HPI Narrative: Patient presents to ED with 3-day history of nausea/vomiting, some diarrhea. Some abdominal pain but comes and goes and is not localized in any 1 area. No fever that he is aware of though he has had some sweats and chills. There has been no blood in the vomit or the diarrhea. Denies eating or drinking anything contaminated that he is aware of. Does smoke marijuana on a regular basis. Does report that hot showers do seem to help with the symptoms. Has not really had significant problems with nausea and vomiting despite years of smoking marijuana. He is status post appendectomy in 2023. He is otherwise healthy and denies any allergies or medications. Related Data Home Medications ?Medication ?Instructions ?Recorded ?Confirmed albuterol sulfate 90 mcg/actuation 2 puff inhalation Q6H PRN 11/06/23 07/16/24 aerosol inhaler shortness of breath or wheezing #8.5 grams inhalational spacing device (Derek #1 ea 11/06/23 11/06/23 Aerosol [place] Enhancer spacer) Previous Rx's ?Medication ?Instructions ?Recorded albuterol sulfate 90 mcg/actuation 2 puff inhalation Q6H PRN 11/06/23 aerosol inhaler shortness of breath or wheezing #8.5 grams inhalational spacing device (Derek #1 ea 11/06/23 Aerosol [place] Enhancer spacer) Allergies Allergy/AdvReac Type Severity Reaction Status Date / Time No Known Allergies Allergy Verified 11/06/23 13:01 General Stated Complaint: Nausea/Vomit/Diar DEEPIKA: 4 Exam Narrative Exam Narrative: Const: WDWN male in NAD. VS per triage. HEENT: NC/AT. Normal facial exam. Neck: Supple. Trachea midline. Lungs: Normal respiratory effort. Cor: RRR. Good radial pulses. GI: Soft/ND/NT. Neuro: A+O x 3. Normal speech, mentation. Cranial nerves II - XII grossly intact. No gross motor or sensory deficit. Ext: No C/C/E. Course Vital Signs Vital signs: Vital Signs Temperature 98.1 F 07/16/24 06:16 Pulse 79 07/16/24 06:16 Respiratory Rate 18 07/16/24 06:16 Blood Pressure 128/73 07/16/24 06:16 Pulse Oximetry 99 07/16/24 06:16 Temperature 98.1 F 07/16/24 06:16 Temperature Source Skin 07/16/24 06:16 Pulse 79 07/16/24 06:16 Respiratory Rate 18 07/16/24 06:16 Blood Pressure 128/73 07/16/24 06:16 Pulse Oximetry 99 07/16/24 06:16 Oxygen Delivery Method Room Air 07/16/24 06:16 Oxygen Flow Rate 0 07/16/24 06:16 Medical Decision Making Patient presenting to ED with complaint of vomiting and diarrhea, more vomiting than anything. Symptoms have been ongoing for 3 days and is now unable to tolerate anything orally. Has some abdominal pain on and off, not persistent and not localized. He does report that a hot shower does seem to help his symptoms. He does smoke marijuana regularly. He has not had many episodes of nausea and vomiting. In any event, at this time his abdomen is benign on exam. Will place IV and check abdominal laboratory studies, provide fluids and treat nausea/vomiting with a dose of IV droperidol. He is signed out to oncoming ED physician pending laboratory results and reevaluation. Quality:SDOH Health Related Social Needs: No Data to Display PFSH All Active Problems Pectus excavatum (Acute) CHI (closed head injury) (Acute) Medical History Dyslexia Attention deficit hyperactivity disorder, combined type (06/30/15) Psoriasis Surgical History Status post surgery Multiple orthopedic procedures including ORIF of left clavicle, right radius, right patella, right humerus S/P laparoscopic appendectomy Circumcision Family History Mother Mental disorder anxiety Brother Mental disorder depression Grandparent, unspecified Essential hypertension Heart disease Mental disorder depression Biological father grandparents: bipolar disorder, schizophrenia. Neoplasm MGM - breast cancer. Sister No problems noted. Brother No problems noted. Other Pediatric hearing loss Social History Smoking/Tobacco Use Status: Current every day Tobacco Type: e-cigarettes Second Hand Exposure: Yes Smoking risk assessment performed?: Yes Alcohol Intake: current Alcohol Intake frequency: a few times a month Alcohol type: hard liquor Drug use: Occasionally Substance use type: marijuana Adopted: No Foster care: No Housing: house Education Level: high school Details: [employer], 12th grade fall 2020 Pets and animals: Yes Pets and animals: cat(s) and dog(s) Current gender identity: male What type of physical activity do you participate in: other Details: Football, baseball,basketball, volleyball Seatbelt use: always Helmet use: Yes Helmet use: sometimes Do you feel safe at home: Yes Do you feel safe in your relationship?: Yes Additional Social history: unable to assess ned
[2024-07-16] MEDS: Normal Saline 1,000 ML 1000 ML IV (07:03)
[2024-07-16] MEDS: Droperidol 5 MG/2 ML VIAL 2.5 MG IVP (07:03)
[2024-07-16 07:10] VITALS: BP 115/47; PULSE 74; RESP 14; O2SAT 100
[2024-07-16 07:11] LABS: HCT 44.4 % (40.0-50.0); HGB 15.9 g/dL (13.5-17.5); MCH 29.4 pg (27.0-33.0); MCHC 35.8 % (32.0-36.0); MCV 82 fL (80-95); MPV 11.1 fL (8.0-11.0); Platelet Count 150 10^3/uL (130-400); RDW 12.5 % (11.8-14.1); RDW-SD 37.7 fL; WBC 7.13 10^3/uL (4.4-10.8)
[2024-07-16 07:24] LABS: Magnesium 1.9 mg/dL (1.8-2.4)
[2024-07-16 07:28] LABS: ALT 18 U/L (16-63); AST 25 U/L (15-37); Albumin 4.9 g/dL (3.4-5.0); Alkaline Phosphatase 73 U/L (46-116); Anion Gap 11.9 mmol/L (3-11); BUN 16 mg/dL (7-18); Bilirubin, Total 0.7 mg/dL (0.2-1.0); CO2 27.1 mmol/L (21.0-32.0); CREATININE 1.1 mg/dL (0.70-1.30); Calcium 9.8 mg/dL (8.5-10.1); Chloride 95 mmol/L (98-107); Estimated GFR 98.56 (mL/min/1.73m2); Glucose 101 mg/dL (74-106); Lipase 22 U/L (<78); Potassium 3.8 mmol/L (3.5-5.1); Sodium 134 mmol/L (136-145); Total Protein 8.5 g/dL (6.4-8.2)
--- NOTE | 2024-07-16 07:50 | ED.PROG_ITS ---
Date of service: 07/16/24 Time of Service: 07:00 Medical Decision Making In brief, this is a 18-year-old male patient who is in our emergency department with 3 days of intractable nausea and vomiting. At the time that I took over this patient's care, his disposition was pending completion of laboratory studies and reevaluation after receiving IV fluids and droperidol. The patient does have a history of frequent cannabis use, and the differential is primarily concerning for cyclical vomiting/cannabis hyperemesis syndrome. The patient has been hemodynamically appropriate and has a benign abdominal examination. - I independently interpreted the laboratory studies, which show no significant leukocytosis, anemia, or thrombocytopenia. The chemistry panel is without evidence of electrolyte abnormality, kidney dysfunction, or liver injury. Lactate is low. On reevaluation the patient reports that his nausea has improved significantly, and I did recommend that he follow-up with his outpatient providers, attempt cessation of cannabis use, and I did provide him with a prescription for capsaicin cream to trial for his symptoms at home. A referral was placed for primary care establishment as patient does not have a primary care provider. At this time, the patient has had a full medical evaluation and is safe for discharge to home. They are hemodynamically stable, ambulatory, and tolerating PO. They are understanding of the follow-up plan and return precautions. They left our facility without incident. Jerri Zavala MD Medical Records Medical records reviewed: Yes I reviewed the patient's medical records. Lab Data Lab results reviewed: Yes I reviewed the patient's lab results. Quality:SDOH Health Related Social Needs: No Data to Display Discharge Plan Disposition Patient Disposition: Home Condition: Stable Discharge Details Clinical Impression: Vomiting Primary Care Provider: Unknown,Unknown ED Provider: Jerri Zavala Home Meds and New Rx's Prescriptions: New capsaicin 0.1 % cream 1 applic topical TID PRNQty: 60 0RF Rx Instructions: do not wash area for at least 30 min after application No Action albuterol sulfate 90 mcg/actuation HFA aerosol inhaler 2 puff inhalation Q6H PRN (Reason: shortness of breath or wheezing) Qty: 8.5 1RF Rx Instructions: use with spacer (DME) Derek Aerosol [place] Enhancer Spacer See Rx Instructions .Route Qty: 1 0RF Rx Instructions: As directed Discharge Instructions Instructions: Nausea and Vomiting, Adult ED Additional Instructions: You were seen in the emergency department today for evaluation of nausea and vomiting. In our department you had a full physical examination performed, and had laboratory studies that were reassuring. You received medications that improved your symptoms. We discussed ongoing management, which includes cessation of marijuana use, hot showers as needed, and I did provide you with a prescription for capsaicin cream, which can be applied to your abdomen and may help with your symptoms. You were referred to establish with a primary care provider and should follow-up with that department to discuss this visit and any symptoms that change, worsen, or persist. Thank you for allowing us to be part of your care. Stand Alone Forms: Work Release
[2024-07-16 08:33] VITALS: BP 136/71; PULSE 73; RESP 18; O2SAT 97
== END 2024-07-16 08:37 | disposition home or self-care (01) ==
PROVIDERS: Emergency Medicine; Emergency Provider Emergency Medicine
DX: R11.2 Nausea with vomiting, unspecified (principal); R19.7 Diarrhea, unspecified; F17.290 Nicotine dependence, other tobacco product, uncomplicated
CPT/HCPCS: 00123; 36415; 80053; 83690; 85027; 96361; 96374; 99284; 83735; J1790

== ENCOUNTER 2024-07-17 20:30 | Emergency (ER) | payer MEDICAID, SELFPAY ==
[2024-07-17 20:36] VITALS: BP 124/77; PULSE 81; RESP 16; TEMP 36.8; O2SAT 97
[2024-07-17 20:41] VITALS: BP 124/77; PULSE 81; RESP 16; TEMP 36.8; O2SAT 97
--- NOTE | 2024-07-17 21:12 | ED.GENADUL_ITS ---
Discharge Plan Disposition Patient Disposition: Home Condition: Stable Discharge Details Clinical Impression: Gastroenteritis Primary Care Provider: Unknown,Unknown ED Provider: Bobo Hamlin Home Meds and New Rx's Prescriptions: Continued albuterol sulfate 90 mcg/actuation HFA aerosol inhaler 2 puff inhalation Q6H PRN (Reason: shortness of breath or wheezing) Qty: 8.5 1RF Rx Instructions: use with spacer (DME) Derek Aerosol [place] Enhancer Spacer See Rx Instructions .Route Qty: 1 0RF Rx Instructions: As directed capsaicin 0.1 % cream 1 applic topical TID PRNQty: 60 0RF Rx Instructions: do not wash area for at least 30 min after application Discharge Instructions Instructions: Viral gastroenteritis in adults, High Potassium Diet Additional Instructions: You were seen in the emergency department for your centralized abdominal pain with the past couple days of vomiting now more focally diarrhea, your laboratory workup is completely benign I do not suspect any acute emergent abdominal pathology, he had very mildly low potassium that should replete with high potassium diet. Please use therapeutic dosing of Tylenol (acetamenophen) & Advil (ibuprofen) in an alternating fashion as follows: Take 1000mg of Tylenol every 6 hours without missing doses- that is 4 times per day. Spencer in between the Tylenol dosings, take 400-600mg of Advil also on a 6 hour schedule, that is also 4 times per day. The daily maximum dosing of Tylenol is 4000mg, and the daily maximum dosing of Advil is 2400mg. This is safe to do for weeks. Please note that some common cold medications & prescription pain medications may contain acetamenophen and you need to read OTC drug labels and factor that in to maximum daily dosings. Please stay well-hydrated drinking at least 2 to 3 L of water per day, schedule please return for severe acute worsening, intractable nausea or vomiting, high fever with worsening abdominal pain or other emergent concerns Discharge Data Discharge Date/Time-TO BE ENTERED AT DEPARTURE: 07/18/24 00:03 HPI General Date/Time Provider Initiated Documentation: 07/17/24 20:42 . HPI Narrative: 18 year-old male presents to ED today by POV/ambulating with a chief complaint of R sided abdominal pain, nausea/vomiting that resolved- seen yesterday for same problem- history of appendectomy last year with onset the last few days. Quality described as R sided abdominal pain, diarrhea, no radiation to fever, chest pain, shortness of breath, black/bloody diarrhea, cough. Severity is described as moderate. Palliating factors include Tylenol/ibuprofen with mild relief. Provoking factors include nothing specific. Patient not anticoagulated. Related Data Home Medications ?Medication ?Instructions ?Recorded ?Confirmed albuterol sulfate 90 mcg/actuation 2 puff inhalation Q6H PRN 11/06/23 07/17/24 aerosol inhaler shortness of breath or wheezing #8.5 grams inhalational spacing device (Derek #1 ea 11/06/23 07/17/24 Aerosol [place] Enhancer spacer) capsaicin 0.1 % topical cream 1 applic topical TID PRN #60 grams 07/16/24 07/17/24 Previous Rx's ?Medication ?Instructions ?Recorded albuterol sulfate 90 mcg/actuation 2 puff inhalation Q6H PRN 11/06/23 aerosol inhaler shortness of breath or wheezing #8.5 grams inhalational spacing device (Derek #1 ea 11/06/23 Aerosol [place] Enhancer spacer) capsaicin 0.1 % topical cream 1 applic topical TID PRN #60 grams 07/16/24 Allergies Allergy/AdvReac Type Severity Reaction Status Date / Time No Known Allergies Allergy Verified 07/16/24 07:02 General Stated Complaint: Abd Prob DEEPIKA: 3 Review of Systems All systems reviewed & are unremarkable except as noted in HPI and below Exam Narrative Exam Narrative: GENERAL APPEARANCE: Well-nourished, non-toxic, awake and alert, atraumatic, no acute distress. SKIN: Warm, pink, dry, intact, without rashes/lesions/ulcerations. HEAD: Normocephalic, atraumatic, normal hair distribution for gender/age. EYES: Normal conjunctiva, no exudates on lids/lashes. ENT: Nares patent, no circumoral cyanosis, no facial swelling NECK: Supple, trachea midline, painless cervical ROM. LUNGS/CHEST: Lungs CTA bilaterally, non-labored respirations, normal A/P diameter, symmetrical expansion, no chest wall deformity HEART (CV/PV): Regular rate and rhythm without murmur, no peripheral edema, no JVD. ABDOMEN: Soft, non-distended, no guarding, mild R periumbilical abdominal tenderness, no McBurney's point tenderness, negative Del Toro's. MSK: Normal ROM, no swelling/deformity to bilateral UEs or LEs, moving all extremities without weakness, no cyanosis, spine midline without tenderness, normal curvature. NEURO: Mental Status AAOx4 - alert to person, place, time, events No facial droop, no forehead involvement. Motor: No focal weakness - strength 5/5 in bilateral UEs and LEs, proximal and distal, symmetric. Sensory: sensation intact to light touch globally. Gait normal: patient ambulated without ataxia into ED room. PSYCH: euthymic, cooperative, pleasant, appropriate speech Course Vital Signs Vital signs: Vital Signs Temperature 36.8 C 07/17/24 20:36 Pulse 81 07/17/24 20:36 Respiratory Rate 16 07/17/24 20:36 Blood Pressure 124/77 07/17/24 20:36 Pulse Oximetry 97 07/17/24 20:36 Temperature 36.8 C 07/17/24 20:41 Temperature Source Oral 07/17/24 20:41 Pulse 81 07/17/24 20:41 Respiratory Rate 16 07/17/24 20:41 Blood Pressure 124/77 07/17/24 20:41 Blood Pressure Position Sitting 07/17/24 20:41 Pulse Oximetry 97 07/17/24 20:41 Oxygen Delivery Method Room Air 07/17/24 20:41 Oxygen Flow Rate 0 07/17/24 20:36 Pain Level 6 07/17/24 21:00 Medical Decision Making This dictation utilizes [id number] dictation software and may contain unedited grammatical errors. 18 year-old male presents to ED today by POV/ambulating with a chief complaint of R sided abdominal pain, nausea/vomiting that resolved- seen yesterday for same problem- history of appendectomy last year with onset the last few days. Quality described as R sided abdominal pain, diarrhea, no radiation to fever, chest pain, shortness of breath, black/bloody diarrhea, cough. Severity is described as moderate. Palliating factors include Tylenol/ibuprofen with mild relief. Provoking factors include nothing specific. Patients' medical history: History of appendectomy. Family and social history: Noncontributory. Pertinent exam findings / vital signs include mild right-sided periumbilical abdominal tenderness without peritoneal signs, benign cardiopulmonary status, nontoxic and afebrile, neuro to. Differential / pathologies of concern include gastroenteritis, less likely renal colic, abdominal wall muscle strain, unlikely perforated viscus or other surgical emergency. Diagnostic studies of: - CBC, CMP, lactate, magnesium, lipase, UA. - CBC shows no acute abnormality - Lactate negative - CMP without actionable abnormality, recommend potassium rich diet for hypokalemia of 3.4 - Magnesium within normal limits - Lipase negative - Urine benign Interventions of: - IV Tylenol, IVP Toradol, 1 L IVF LR. ED Course/Assessment/Plan: 18-year-old male presents with few days of right-sided abdominal pain with some solid stools, blood work is reassuring with no leukocytosis, he has a history of appendectomy, he has a nonperitoneal abdomen on exam I counseled him on likely gastroenteritis good pain relief with Tylenol and Toradol, counseled for strict return criteria for intractable nausea or vomiting or acute worsening especially with fever but otherwise I think his syndrome will pass in the next couple days. Findings not consistent with peritoneal abdomen, electrolyte abnormality, sepsis, pancreatitis, UTI, renal stone. Disposition of gastroenteritis. Patient verbalized understanding of the plan and return to ED criteria and engaged in shared decision making. Medical Records Medical records reviewed: Yes I reviewed the patient's medical records. Lab Data Lab results reviewed: Yes I reviewed the patient's lab results. Labs: Laboratory Tests Range/Units 07/17/24 21:20 WBC (4.4-10.8) 10^3/uL 4.56 RBC (4.36-5.78) 10^6/uL 5.03 Hgb (13.5-17.5) g/dL 14.8 Hct (40.0-50.0) % 41.8 MCV (80-95) fL 83 MCH (27.0-33.0) pg 29.4 MCHC (32.0-36.0) % 35.4 RDW (11.8-14.1) % 12.6 Plt Count (130-400) 10^3/uL 150 MPV (8.0-11.0) fL 10.3 Immature Gran % % 0.4 Neutrophils % % 51.9 Lymphocytes % % 35.5 Monocytes % % 11.6 Eosinophils % % 0.2 Basophils % % 0.4 Nucleated RBC % (0.0-0.3) % 0.0 Absolute Neutrophils (1.2-6.7) 10^3/uL 2.36 Absolute Lymphocytes (1.2-3.4) 10^3/uL 1.62 Absolute Monocytes (0.1-0.8) 10^3/uL 0.53 Absolute Eosinophils (0.0-0.7) 10^3/uL 0.01 Absolute Basophils (0.0-0.2) 10^3/uL 0.02 VBG Lactate (<or=2.0) mmol/L 0.6 Sodium (136-145) mmol/L 138 Potassium (3.5-5.1) mmol/L 3.4 L Chloride (98-107) mmol/L 101 Carbon Dioxide (21.0-32.0) mmol/L 29.7 Anion Gap (3-11) mmol/L 7.3 BUN (7-18) mg/dL 12 Creatinine (0.70-1.30) mg/dL 0.9 Est GFR (CKD-EPI 2020) (mL/min/1.73m2) 125.39 Glucose (74-106) mg/dL 96 Calcium (8.5-10.1) mg/dL 8.9 Magnesium (1.8-2.4) mg/dL 2.1 Total Bilirubin (0.2-1.0) mg/dL 0.7 AST (15-37) U/L 26 ALT (16-63) U/L 23 Alkaline Phosphatase (46-116) U/L 67 Total Protein (6.4-8.2) g/dL 7.4 Albumin (3.4-5.0) g/dL 4.1 Lipase (<78) U/L 37 Urine Color (Yellow) Yellow Urine Clarity (Clear) Clear Urine pH (5-8) 6.0 Ur Specific [place] (1.005-1.025) 1.025 Urine Protein (Neg-Trace) mg/dL 30 H Urine Ketones (Negative) mg/dL Trace H Urine Blood (Negative) Negative Urine Nitrite (Negative) Negative Urine Bilirubin (Negative) Small H Urine Urobilinogen (Up to 0.2) mg/dL 4.0 H Ur Leukocyte Esterase (Negative) Negative Urine RBC (0-2) HPF 0-2 Urine WBC (0-5) HPF 0-2 Ur Epithelial Cells (Negative) HPF Rare Urine Crystals (Negative) HPF Negative Urine Bacteria (Negative) HPF Rare Urine Casts (Negative) LPF Negative Urine Mucus (Negative) Moderate Ur Culture Indicated? No Urine Glucose (Negative) mg/dL Negative Quality:SDOH Health Related Social Needs: No Data to Display PFSH All Active Problems (Updated 07/17/24 @ 22:10 by TERI Garcia) Gastroenteritis (Acute) Vomiting (Acute) Pectus excavatum (Acute) CHI (closed head injury) (Acute) Medical History Dyslexia Attention deficit hyperactivity disorder, combined type (06/30/15) Psoriasis Surgical History Status post surgery Multiple orthopedic procedures including ORIF of left clavicle, right radius, right patella, right humerus S/P laparoscopic appendectomy Circumcision Family History Mother Mental disorder anxiety Brother Mental disorder depression Grandparent, unspecified Essential hypertension Heart disease Mental disorder depression Biological father grandparents: bipolar disorder, schizophrenia. Neoplasm MGM - breast cancer. Sister No problems noted. Brother No problems noted. Other Pediatric hearing loss Social History Smoking/Tobacco Use Status: Current every day Tobacco Type: e-cigarettes Second Hand Exposure: Yes Smoking risk assessment performed?: Yes Alcohol Intake: former Drug use: Occasionally Substance use type: marijuana Details: last use 07/14/24 Adopted: No Foster care: No Housing: house Education Level: high school Details: [employer], 12th grade fall 2020 Pets and animals: Yes Pets and animals: cat(s) and dog(s) Current gender identity: male What type of physical activity do you participate in: other Details: Football, baseball,basketball, volleyball Seatbelt use: always Helmet use: Yes Helmet use: sometimes Do you feel safe at home: Yes Do you feel safe in your relationship?: Yes Additional Social history: unable to assess privatley
[2024-07-17] MEDS: ACETAMINOPHEN 1,000 MG/100 ML BTL 400 MG IVPB (21:25)
[2024-07-17] MEDS: hydrOXYzine HCL 25 MG TAB PO (21:25)
[2024-07-17] MEDS: Ketorolac 15 MG/ML VIAL IVP (21:27)
[2024-07-17 21:28] LABS: Lactate 0.6 mmol/L (<or=2.0)
[2024-07-17 21:29] LABS: Abs Immature Grans 0.02 10^3/uL (0.0-0.06); Absolute Basophil Count 0.02 10^3/uL (0.0-0.2); Absolute Eosinophil Count 0.01 10^3/uL (0.0-0.7); Absolute Lymphocyte Count 1.62 10^3/uL (1.2-3.4); Absolute Monocyte Count 0.53 10^3/uL (0.1-0.8); Absolute Neutrophil Count 2.36 10^3/uL (1.2-6.7); Basophils % 0.4 %; Eosinophils % 0.2 %; HCT 41.8 % (40.0-50.0); HGB 14.8 g/dL (13.5-17.5); Immature Grans % 0.4 %; Lymphocytes % 35.5 %; MCH 29.4 pg (27.0-33.0); MCHC 35.4 % (32.0-36.0); MCV 83 fL (80-95); MPV 10.3 fL (8.0-11.0); Monocytes % 11.6 %; Neutrophils % 51.9 %; Platelet Count 150 10^3/uL (130-400); RBC 5.03 10^6/uL (4.36-5.78); RDW 12.6 % (11.8-14.1); RDW-SD 38.1 fL; WBC 4.56 10^3/uL (4.4-10.8)
[2024-07-17 21:37] LABS: Bilirubin Small (Negative); Blood Negative (Negative); Clarity Clear (Clear); Glucose Negative (Negative); Ketones Trace mg/dL (Negative); Leukocyte Esterase Negative (Negative); Nitrite Negative (Negative); Specific Gravity 1.025 (1.005-1.025)
[2024-07-17 21:45] LABS: ALT 23 U/L (16-63); AST 26 U/L (15-37); Albumin 4.1 g/dL (3.4-5.0); Alkaline Phosphatase 67 U/L (46-116); Anion Gap 7.3 mmol/L (3-11); BUN 12 mg/dL (7-18); Bilirubin, Total 0.7 mg/dL (0.2-1.0); CO2 29.7 mmol/L (21.0-32.0); CREATININE 0.9 mg/dL (0.70-1.30); Calcium 8.9 mg/dL (8.5-10.1); Chloride 101 mmol/L (98-107); Estimated GFR 125.39 (mL/min/1.73m2); Glucose 96 mg/dL (74-106); Lipase 37 U/L (<78); Magnesium 2.1 mg/dL (1.8-2.4); Potassium 3.4 mmol/L (3.5-5.1); Sodium 138 mmol/L (136-145); Total Protein 7.4 g/dL (6.4-8.2)
[2024-07-17 21:47] LABS: Bacteria Rare HPF (Negative); C & S Indicated? No; Casts Negative LPF (Negative); Crystals Negative HPF (Negative); Epithelial Cells Rare HPF (Negative); Mucus Moderate (Negative); RBC 0-2 HPF (0-2); WBC 0-2 HPF (0-5)
== END 2024-07-18 00:03 | disposition home or self-care (01) ==
PROVIDERS: Emergency Provider Physician Assistant
DX: K52.9 Noninfective gastroenteritis and colitis, unspecified (principal); R11.10 Vomiting, unspecified
CPT/HCPCS: 99283; 99284; 96375; 36415; 80053; 83690; 96365; 81003; 81015; 83605; 83735; 85025; J0131; J1885

== ENCOUNTER 2024-11-17 17:23 | Emergency (ER) | payer MEDICAID, SELFPAY ==
[2024-11-17 17:25] VITALS: BP 129/79; PULSE 81; RESP 20; TEMP 36.8; O2SAT 97
--- NOTE | 2024-11-17 18:00 | DI.RAD_ITS ---
Exam(s) XR KNEE LT 3V AP,LAT,MIKHAIL EXAM: XR KNEE LT 3V AP,LAT,MIKHAIL CLINICAL HISTORY: left knee injury. TECHNIQUE: 2D digital imaging was performed. COMPARISON: CR,XR XR KNEE RT 3V AP,LAT,MIKHAIL from 11/20/2020 FINDINGS: 3 views h no evidence of fracture but there does appear to be a probable joint effusion here. This may signify internal derangement. Bone density normal. No osseous lesions. No osteochondral defects. No calcified loose bodies. IMPRESSION: No acute osseous findings in the left knee. However, there appears to be a joint effusion which may signify internal derangement. Appropriate follow-up recommended. DATA REPOSITORY: RADIATION DOSE DELIVERED:
--- NOTE | 2024-11-17 20:14 | ED.GENADUL_ITS ---
Discharge Plan Disposition Patient Disposition: Home Condition: Stable Discharge Details Clinical Impression: Internal derangement of left knee Primary Care Provider: Unknown,Unknown ED Provider: Jerri Zavala Home Meds and New Rx's Prescriptions: No Action albuterol sulfate 90 mcg/actuation HFA aerosol inhaler 2 puff inhalation Q6H PRN (Reason: shortness of breath or wheezing) Qty: 8.5 1RF Rx Instructions: use with spacer (DME) Derek Aerosol [place] Enhancer Spacer See Rx Instructions .Route Qty: 1 0RF Rx Instructions: As directed capsaicin 0.1 % cream 1 applic topical TID PRNQty: 60 0RF Rx Instructions: do not wash area for at least 30 min after application Discharge Instructions Instructions: Internal Derangement of the Knee (DC) Additional Instructions: You were seen in the emergency department today for evaluation of left knee pain and have some swelling inside the joint concerning for an internal derangement or ligamentous injury. You were placed in a splint and can bear weight as tolerated. Please use therapeutic dosing of Tylenol (acetaminophen) & Advil (ibuprofen) in an alternating fashion as follows: Take 1000mg of Tylenol every 6 hours without missing doses- that is 4 times per day. [place] in between the Tylenol doses, take 600mg of Advil also on a 6 hour schedule, that is also 4 times per day. With this strategy, you will be taking something for fever/pain as often as every 3 hours. The daily maximum dosing of Tylenol is 4000mg, and the daily maximum dosing of Advil is 2400mg. Please note that some common cold medications & prescription pain medications may contain acetaminophen and you need to read OTC drug labels and factor that in to maximum daily doses. I have placed a referral for you to be seen by the orthopedic department for further workup and management of this injury. Please follow-up with your primary care provider in the next few days to discuss this visit and any symptoms that change, worsen, or persist. Thank you for allowing us to be part of your care. Stand Alone Forms: Work Release Referrals: [facility] [Provider Group] Discharge Data Discharge Date/Time-TO BE ENTERED AT DEPARTURE: 11/17/24 20:41 HPI General Mode of arrival: ambulatory . Date/Time Provider Initiated Documentation: 11/17/24 18:14 . Limitations to Documentation: no limitations . Information obtained by: patient, family and old records reviewed . HPI Narrative: This is a 19-year-old male patient presenting for evaluation of a left knee injury. 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 No discrete inciting event but he has noticed it worsening over the past 3 days. Has not tried any medications for management of the symptoms in the outpatient environment. No prior history of knee problems on that side, no numbness, tingling, or weakness of the affected left lower extremity. This is an isolated complaint and the patient is otherwise in his normal state of health. Related Data Home Medications ?Medication ?Instructions ?Recorded ?Confirmed albuterol sulfate 90 mcg/actuation 2 puff inhalation Q 6H PRN 11/06/23 11/17/24 aerosol inhaler shortness of breath or wheez ing #8.5 grams inhalational spacing device (Derek #1 ea 11/06/23 Aerosol Bo[place] Enhancer spacer) capsaicin 0.1 % topical cream 1 applic topical TID PRN #60 grams 07/16/24 11/17/24 Previous Rx's ?Medication ?Instructions ?Recorded albuterol sulfate 90 mcg/actuation 2 puff inhalation Q 6H PRN 11/06/23 aerosol inhaler shortness of breath or wheez ing #8.5 grams inhalational spacing device (Derek #1 ea 11/06/23 Aerosol Boone Enhancer spacer) capsaicin 0.1 % topical cream 1 applic topical TID PRN #60 grams 07/16/24 Allergies Allergy/AdvReac Type Severity Reaction Status Date / Time No Known Allergies Allergy Verified 11/17/24 17:28 General Stated Complaint: Orthopedic DEEPIKA: 4 Exam Narrative Exam Narrative: Gen: Awake and alert, in no apparent distress HEENT: Non-icteric sclera Neck: Supple Lungs: No apparent respiratory distress, normal respiratory effort. CV: Appears well perfused Abdomen: Non-distended MSK: Moves 4 extremities without apparent limitation in ROM. The patient has no tenderness or defects to palpation of the quadriceps or patellar tendon, patella is nontender. Small palpable effusion, no medial or posterior knee joint tenderness on the left side, does have some lateral joint line tenderness. No laxity with valgus or varus stress testing, firm endpoint appreciated on Gael's, strong DP pulses appreciated affected left side. The patient has full flexion. The patient has full flexion and extension against resistance of the affected left lower extremity at the knee. Skin: Visualized skin without rashes, cyanosis. Neuro: Normal Gait, no obvious focal deficits or facial asymmetry. CSM's intact speaks in full, clear sentences. Psych: Appropriate for situation. Course Vital Signs Vital signs: Vital Signs Temperature 36.8 C 11/17/24 17:25 Pulse 81 11/17/24 17:25 Respiratory Rate 20 11/17/24 17:25 Blood Pressure 129/79 11/17/24 17:25 Pulse Oximetry 97 11/17/24 17:25 Temperature 36.8 C 11/17/24 17:25 Pulse 81 11/17/24 17:25 Respiratory Rate 20 11/17/24 17:25 Blood Pressure 129/79 11/17/24 17:25 Blood Pressure Position Sitting 11/17/24 17:25 Pulse Oximetry 97 11/17/24 17:25 Oxygen Delivery Method Room Air 11/17/24 17: Oxygen Flow Rate 0 11/17/24 17:25 Medical Decision Making This is a 19-year-old male patient presenting for evaluation of the left knee pain. Differential includes but is not limited to sprain/internal derangement, meniscal injury, considered fracture and dislocation though this is less likely in the absence of discrete trauma. Considered degenerative changes/wear and tear. No evidence for neurovascular derangement, infectious joint less likely in this patient with no overlying skin changes, no redness, warmth, or history of crystal arthropathy. We will obtain an x-ray of the affected left knee. The patient is not desiring of any medications for management of pain at this time. -X-ray reviewed by myself, showing no osseous abnormalities but demonstrating a joint effusion that may potentially represent internal derangement. For this reason I did place the patient in a knee immobilizer, he was able to bear weight without crutches. I counseled him on conservative pain management, and provided an orthopedics consult for further workup and management. At this time, the patient has had a full medical evaluation and is safe for discharge to home. They are hemodynamically stable, ambulatory, and tolerating PO. They are understanding of the follow-up plan and return precautions. They left our facility without incident. Jerri Zavala MD PFSH All Active Problems (Updated 11/17/24 @ 20:16 by Jerri Zavala MD) Internal derangement of left knee (Acute) Pectus excavatum (Acute) CHI (closed head injury) (Acute) Medical History Dyslexia Attention deficit hyperactivity disorder, combined type (06/30/15) Psoriasis Surgical History Status post surgery Multiple orthopedic procedures including ORIF of left clavicle, right radius, right patella, right humerus S/P laparoscopic appendectomy Circumcision Family History Mother Mental disorder anxiety Brother Mental disorder depression Grandparent, unspecified Essential hypertension Heart disease Mental disorder depression Biological father grandparents: bipolar disorder, schizophrenia. Neoplasm MGM - breast cancer. Sister No problems noted. Brother No problems noted. Other Pediatric hearing loss Social History Smoking/Tobacco Use Status: Current every day Tobacco Type: e-cigarettes Second Hand Exposure: Yes Smoking risk assessment performed?: Yes Alcohol Intake: former Drug use: Occasionally Substance use type: marijuana Details: last use 07/14/24 Adopted: No Foster care: No Housing: house Education Level: high school Details: [employer], 12th grade fall 2020 Pets and animals: Yes Pets and animals: cat(s) and dog(s) Current gender identity: male What type of physical activity do you participate in: other Details: Football, baseball,basketball, volleyball Seatbelt use: always Helmet use: Yes Helmet use: sometimes Do you feel safe at home: Yes Do you feel safe in your relationship?: Yes Additional Social history: unable to assess privatley PAWSS Have you Been Recently Intoxicated or Drunk Within the Last 30 days?: No Have you Ever Experienced Previous Episodes of Alcohol Withdrawal?: No Have you ever Experienced Withdrawal Seizures?: No Have you ever Experienced Delirium Tremens(DT)s?: No Have you ever undergone Alcohol Rehabilitation Treatment (i.e, inpt ot outpatient treatment programs)?: No Have you ever Experienced Blackouts?: No Have you ever Combined Alcohol with other Downers within the last 90 days?: No Have you ever Combined Alcohol with any other Substance of Abuse during the last 90 days?: No Positive Blood Alcohol level on Presentation? [PCS.BAL]: No Evidence of Increased Autonomic Activity (i.e. HR>120, tremor, sweating, agitation, nausea)?: No Result: 0
== END 2024-11-17 20:41 | disposition home or self-care (01) ==
PROVIDERS: Emergency Provider Emergency Medicine
DX: M23.92 Unspecified internal derangement of left knee (principal); X58.XXXA Exposure to other specified factors, initial encounter
CPT/HCPCS: 99283 ×2; 29505; 73562

== ENCOUNTER 2025-03-02 11:04 | Emergency (ER) | payer MEDICAID, SELFPAY ==
[2025-03-02 11:07] VITALS: BP 116/75; PULSE 90; RESP 20; TEMP 36.7; O2SAT 98
[2025-03-02 11:09] VITALS: BP 116/75; PULSE 90; RESP 20; TEMP 36.7; O2SAT 98
--- NOTE | 2025-03-02 11:19 | ED.GENADUL_ITS ---
Discharge Plan Disposition Patient Disposition: Home Condition: Stable Discharge Details Clinical Impression: N&V (nausea and vomiting), Hypokalemia Primary Care Provider: Unknown,Unknown ED Provider: Celio Carcamo Home Meds and New Rx's Prescriptions: New ondansetron 4 mg tablet,disintegrating 4 mg PO Q8H PRN (Reason: nausea and vomiting) Qty: 30 0RF Discharge Instructions Instructions: High Potassium Diet Additional Instructions: Your blood work showed your potassium was mildly low. You can try increasing your dietary intake of potassium. If your stomach symptoms and 3 days follow-up with either your primary care provider or express care. If you feel more ill or have persistent vomiting despite the nausea medication or severe abdominal pain return to the Emergency Department for reevaluation Stand Alone Forms: Portal Information HPI General Mode of arrival: ambulatory . Date/Time Provider Initiated Documentation: 03/02/25 11:09 . Limitations to Documentation: no limitations . Information obtained by: patient and family . History of Present Illness 19 year old M presents to the emergency department with the chief complaint of n/v/d, described as moderate, Patient started experiencing this day(s) (4) and it has been intermittent. No relieving factors improve symptom(s), No exacerbating factors reported . Patient notes denies chest pain, fever/chills and shortness of breath. Patient did receive the following treatments prior to arrival, none Related Data Home Medications ?Medication ?Instructions ?Recorded ?Confirmed ondansetron 4 mg disintegrating 4 mg PO Q8H PRN nausea and 03/02/25 tablet vomiting #30 tabs Previous Rx's ?Medication ?Instructions ?Recorded ondansetron 4 mg disintegrating 4 mg PO Q8H PRN nausea and 03/02/25 tablet vomiting #30 tabs Allergies Allergy/AdvReac Type Severity Reaction Status Date / Time No Known Allergies Allergy Verified 03/02/25 11:10 General Stated Complaint: Abd Prob DEEPIKA: 3 Review of Systems All systems reviewed & are unremarkable except as noted in HPI and below Constitutional Constitutional: Denies chills, Denies fever(s) and Denies weakness Cardiovascular Cardiovascular: Denies chest pain and Denies dyspnea Respiratory Respiratory: Denies cough and Denies dyspnea Gastrointestinal Gastrointestinal: Reports abdominal pain, Reports nausea and Reports vomiting Neurologic Neurologic: Denies weakness Exam Const General: no acute distress Orientation: alert HENMT Head: normal to inspection Ears: external ears normal General nose exam: external nose normal Mouth: moist mucous membranes Eyes General: appearance normal, both eyes and all related structures Neck Neck: normal visual inspection Resp Effort & Inspection: normal respiratory effort and able to speak in complete sentences Cardio Rate: regular rate GI Palpation: soft, not firm and tender Skin General skin exam: no rashes or lesions noted Neuro General: patient alert and patient oriented x3 Extrem General: normal to inspection Psych Mental Status: mental status grossly normal Course Vital Signs Vital signs: Vital Signs Temperature 36.7 C 03/02/25 11:07 Pulse 90 03/02/25 11:07 Respiratory Rate 20 03/02/25 11:07 Blood Pressure 116/75 03/02/25 11:07 Pulse Oximetry 98 03/02/25 11:07 Temperature 36.7 C 03/02/25 11:09 Pulse 90 03/02/25 11:09 Respiratory Rate 20 03/02/25 11:09 Blood Pressure 116/75 03/02/25 11:09 Blood Pressure Position Sitting 03/02/25 11:09 Pulse Oximetry 98 03/02/25 11:09 Oxygen Delivery Method Room Air 03/02/25 11:09 Oxygen Flow Rate 0 03/02/25 11:09 Medical Decision Making 19-year-old male who denies any chronic medical problems, states he has used marijuana on a daily basis but has not since has been feeling sick for 4 days with nausea vomiting diarrhea. He denies any other drug use. He denies any recent travel or fevers. His mother states that family members in the household had similar symptoms but resolved after 24 hours. Patient denies any severe abdominal pain but states he has some cramping. He is stable on arrival, he has a nondistended soft abdomen with tenderness in the mid abdomen without guarding. I suspect viral illness versus possibly cannabinoid hyperemesis syndrome. Given his benign abdomen exam I do not feel imaging at this time is indicated unless he has a significant leukocytosis. Also check a CMP and a Fluvid as well as a lipase. Will treat symptoms with Zofran and IV fluids and reassess. Patient with mildly elevated bilirubin which has had before, suspect [place]. Potassium mildly low at 3.1. Patient is feeling better and is tolerating p.o. No abdominal tenderness on repeat exam so do not feel imaging is abdomen is indicated. He is stable for discharge and will follow-up with his PCP or express care if not improving, return precautions given. Differential Diagnosis Differential Diagnosis: Viral illness, dehydration, cannabinoid hyperemesis syndrome PFSH All Active Problems (Updated 03/02/25 @ 12:36 by Celio Carcamo MD) Hypokalemia (Acute) N&V (nausea and vomiting) (Acute) Pectus excavatum (Acute) CHI (closed head injury) (Acute) Medical History Dyslexia Attention deficit hyperactivity disorder, combined type (06/30/15) Psoriasis Surgical History Status post surgery Multiple orthopedic procedures including ORIF of left clavicle, right radius, right patella, right humerus S/P laparoscopic appendectomy Circumcision Family History Mother Mental disorder anxiety Brother Mental disorder depression Grandparent, unspecified Essential hypertension Heart disease Mental disorder depression Biological father grandparents: bipolar disorder, schizophrenia. Neoplasm MGM - breast cancer. Sister No problems noted. Brother No problems noted. Other Pediatric hearing loss Social History Smoking/Tobacco Use Status: Current every day Tobacco Type: e-cigarettes Second Hand Exposure: Yes Smoking risk assessment performed?: Yes Alcohol Intake: former Drug use: Occasionally Substance use type: marijuana Details: last use 07/14/24 Adopted: No Foster care: No Housing: house Education Level: high school Details: [employer], 12th grade fall 2020 Pets and animals: Yes Pets and animals: cat(s) and dog(s) Current gender identity: male What type of physical activity do you participate in: other Details: Football, baseball,basketball, volleyball Seatbelt use: always Helmet use: Yes Helmet use: sometimes Do you feel safe at home: Yes Do you feel safe in your relationship?: Yes Additional Social history: unable to assess privatley
[2025-03-02 11:43] LABS: Abs Immature Grans 0.02 10^3/uL (0.0-0.06); HCT 45.8 % (40.0-50.0); HGB 16.2 g/dL (13.5-17.5); Immature Grans % 0.2 %; MCH 29.1 pg (27.0-33.0); MCHC 35.4 % (32.0-36.0); MCV 82 fL (80-95); MPV 10.1 fL (8.0-11.0); Platelet Count 300 10^3/uL (130-400); RBC 5.57 10^6/uL (4.36-5.78); RDW 12.7 % (11.8-14.1); RDW-SD 38.1 fL; WBC 9.57 10^3/uL (4.4-10.8)
[2025-03-02] MEDS: Normal Saline 1,000 ML 1000 ML IV (11:45)
[2025-03-02] MEDS: Ondansetron 4 MG/2 ML VIAL IVP (11:46)
[2025-03-02 11:58] LABS: ALT 18 U/L (10-49); AST 24 U/L (<34); Albumin 5.5 g/dL (3.2-5.0); Alkaline Phosphatase 66 U/L (46-116); Anion Gap 14.8 mmol/L (3-11); BUN 23 mg/dL (9-23); Bilirubin, Total 1.4 mg/dL (0.2-1.2); CO2 24.1 mmol/L (20.0-31.0); Calcium 10.3 mg/dL (8.3-10.6); Chloride 98 mmol/L (98-107); Glucose 80 mg/dL (74-106); Lipase 25 U/L (<53); Magnesium 2.1 mg/dL (1.6-2.6); Potassium 3.1 mmol/L (3.5-5.1); Sodium 137 mmol/L (136-145); Total Protein 8.5 g/dL (5.7-8.2)
[2025-03-02 12:16] LABS: COVID-19 PCR Negative (Negative); RSV PCR Negative (Negative)
[2025-03-02] MEDS: Potassium Chloride 10 MEQ CAPCR 40 MEQ PO (12:31)
[2025-03-02 12:57] VITALS: BP 122/72; PULSE 87; RESP 18; TEMP 36.4; O2SAT 98
== END 2025-03-02 12:59 | disposition home or self-care (01) ==
PROVIDERS: Emergency Provider Emergency Medicine
DX: R11.2 Nausea with vomiting, unspecified (principal); E87.6 Hypokalemia
CPT/HCPCS: 99283; 99284; 36415; 96374; 80053; 83690; 87637; 96361; 83735; 85025; J2405